=== PATIENT | female | born 1955 | race Caucasian/White ===

== ENCOUNTER → 2017-01-03 | Outpatient (REF) ==
[2017-01-03 19:01] LABS: THYROID STIMULATING HORMONE 2.65 uIU/mL (0.465-4.680)
== END ==
LOC: ZLAB.WCH 18:16
PROVIDERS: Nurse Practitioner Family
DX: Z01.89 Encounter for other specified special examinations (principal)

== ENCOUNTER → 2018-11-06 | Outpatient (REF) | LOC: ZLAB.WCH 16:52 | DX: Z01.89 Encounter for other specified special examinations (principal) ==

== ENCOUNTER 2019-12-09 10:45 | Inpatient (IN) | payer BC ==
[~2019-12-09] VITALS: Ht 165.1 cm; Wt 86.3 kg
[2019-12-09] VITALS (365 sets, daily range): BP systolic 120–142; BP diastolic 58–84; PULSE 82–98; TEMP 98.6–100.5; O2SAT 92–100
[2019-12-09] MEDS ORDERED: EFFEXOR-XR150 MG PO (13:14)
[2019-12-09] MEDS ORDERED: ESTRACE 1MG1 MG/TAB PO (13:15)
[2019-12-09] MEDS ORDERED: EFFEXOR XR75 MG/CAP PO (13:15)
[2019-12-09] MEDS ORDERED: PRIL40 PO (13:15)
--- NOTE | 2019-12-09 19:30 | NUR ---
Assessment complete; reports mild SOB; 's on RA. Other assessment non-remarkable. Will continue to monitor.
[2019-12-09 21:20] LABS: COLLECTION METHOD CLEAN CATCH
[2019-12-09 21:28] LABS: MUCOUS Present /lpf; PH 5 (5-8); SQUAMOUS EPITHELIAL 0-2 /hpf; URINE APPEARANCE Clear; URINE BACTERIA None Seen /hpf; URINE BILIRUBIN Negative (NEGATIVE); URINE BLOOD Negative (NEGATIVE); URINE COLOR Yellow; URINE GLUCOSE Negative (NEGATIVE); URINE KETONE Negative (NEGATIVE); URINE LEUKOCYTE ESTERASE Negative (NEGATIVE); URINE NITRATE Negative (NEGATIVE); URINE PROTEIN(semi-quant) Negative (NEGATIVE); URINE RBC 0-2 /hpf; URINE UROBILINOGEN Negative (NEGATIVE)
[2019-12-10] VITALS (637 sets, daily range): BP systolic 109–139; BP diastolic 62–67; PULSE 67–83; TEMP 97–99.8; O2SAT 63–100
--- NOTE | 2019-12-10 00:30 | NUR ---
Called to bedside as patient reported chills and a headache. T 98.8. Reported chills may be due to "just being cold". PRN tylenol administered for headache and warm blanket provided. Denies any other concerns or needs at this time. Call light left within reach, will continue to monitor.
[2019-12-10 05:30] LABS: BASO # 0.1 (0.0-0.2); BASO % 0.5 % (0.0-2.0); EOS # 0.1 (0.0-0.7); EOS % 0.5 % (0-4.0); GRAN # 10.6 (1.4-6.5); GRAN % 80.5 % (42.2-75.2); HEMOGLOBIN 10.3 g/dl (12.5-16.0); LYMPH # 1.4 (1.2-3.4); LYMPH % 10.7 % (20.0-51.0); MEAN CELL VOLUME 85 fl (80.0-100.0); MEAN CORPUSCULAR HEMOGLOBIN 27 pg (27.0-31.0); MEAN CORPUSCULAR HGB CONC 31 g/dl (33.0-37.0); MEAN PLATELET VOLUME 11.5 fl (7.4-10.4); MONO % 7.4 % (1.7-9.3); PLATELET COUNT 190 K/mm3 (130-400); RED BLOOD COUNT 3.88 M/mm3 (4.10-5.30)
[2019-12-10 05:41] LABS: BILIRUBIN,TOTAL 0.7 mg/dL (0.0-1.0); CALCIUM 7.4 mg/dL (8.4-10.2); CREATININE, serum 0.67 (0.52-1.25); POTASSIUM 3.5 mmol/L (3.4-5.0); TOTAL PROTEIN 5.7 gm/dL (6.4-8.2)
--- NOTE | 2019-12-10 07:15 | NUR ---
Report received from ISAAC Saenz. Patient is resting comfortably in bed. Call light and bed side table are within reach of patient.
--- NOTE | 2019-12-10 15:25 | NUR ---
SW contacted the patient to discuss discharge plan. The patient lives alone in [place]. Her daughter, Carolyn (ph#[phone]), lives in [place] and her son, Jose De Jesus (ph#[phone]) lives in [place]. She reports independence with ADLs and she does not have any DME. The patient's PCP is Dr. Giovana Laird and she receives her medications at [facility]. She reports no difficulties obtaining her meds. The patient does not have advanced directives completed. Her in June and she only has two children: Carolyn and Jose De Jesus. She states that they are her next of kin. The patient plans to return home upon discharge. The patient is PUI. The COVID results are pending. No additional needs at this time, but SW to continue to follow as needed.
--- NOTE | 2019-12-10 19:45 | NUR ---
This nurse gave report to ISAAC Saenz. Patient is resting comfortably in bed. Call light and bedside table are within reach. Patient stated she did not require anything at the time.
--- NOTE | 2019-12-10 22:30 | NUR ---
Assessment complete; Patient denies any pain or shortness of breath. Occasional cough reported. No other concerns at this time.
[2019-12-11] VITALS (259 sets, daily range): BP systolic 140–147; BP diastolic 60–71; PULSE 82–89; TEMP 98.3–99.2; O2SAT 83–99
--- NOTE | 2019-12-11 01:50 | NUR ---
Resting in bed; no concerns at this time.
[2019-12-11 06:38] LABS: BASO # 0.1 (0.0-0.2); BASO % 0.5 % (0.0-2.0); EOS # 0.2 (0.0-0.7); EOS % 2.3 % (0-4.0); GRAN # 7.7 (1.4-6.5); GRAN % 73.5 % (42.2-75.2); LYMPH # 1.7 (1.2-3.4); LYMPH % 16.2 % (20.0-51.0); MEAN CELL VOLUME 84 fl (80.0-100.0); MEAN CORPUSCULAR HGB CONC 32 g/dl (33.0-37.0); MEAN PLATELET VOLUME 11.4 fl (7.4-10.4); MONO # 0.7 (0.1-0.6); PLATELET COUNT 186 K/mm3 (130-400); RED BLOOD COUNT 3.72 M/mm3 (4.10-5.30); REDCELL DISTRIBUTION WIDTH-CV 15.1 % (11.5-14.5)
[2019-12-11 06:45] LABS: HEMATOCRIT 31.1 % (37.0-47.0); HEMOGLOBIN 9.8 g/dl (12.5-16.0); MEAN CORPUSCULAR HEMOGLOBIN 26 pg (27.0-31.0)
[2019-12-11 06:59] LABS: ALBUMIN 3.1 gm/dL (3.5-5.0); BILIRUBIN,TOTAL 0.5 mg/dL (0.0-1.0); CALCIUM 8.1 mg/dL (8.4-10.2); CREATININE, serum 0.62 (0.52-1.25); POTASSIUM 3.4 mmol/L (3.4-5.0)
[2019-12-11] MEDS ORDERED: DOXYCYCLINE HY100 MG PO (11:22)
[2019-12-11] MEDS ORDERED: OMNICEF 300MG300 MG PO (11:22)
--- NOTE | 2019-12-11 12:59 | NUR ---
patient is alert and oriented. denies any pain. Giovana-Infection control informed me the patient result for covid came back negative. INT discontinued. patient received instruction and education on new medication Omnicef and deoxycycline. patient discharged.
== END 2019-12-11 12:17 | disposition home or self-care (01) | DRG 871 ==
LOC: IMCU 10:45 → EU 11:54 → IMCU 16:05 → EU 12-11 12:17
PROVIDERS: ADMIT Hospitalist
DX: A41.9 Sepsis, unspecified organism (principal); J18.9 Pneumonia, unspecified organism; R65.20 Severe sepsis without septic shock; F32.9 Major depressive disorder, single episode, unspecified; K21.9 Gastro-esophageal reflux disease without esophagitis
CPT/HCPCS: 99223-AI; A4216; J0456; J0696; J1650; J7030; J7050